=== PATIENT | female | born 1975 | race Caucasian/White ===

== ENCOUNTER 2017-10-14 15:25 | Inpatient (IN) ==
--- NOTE | 2017-10-14 15:39 | Emergency Department Note ---
Disposition Clinical Impression: Neurosensory deficit, Left-sided weakness, Left sided numbness, Facial droop Headache Qualifiers: Headache type: unspecified Headache chronicity pattern: acute headache Intractability: not intractable Qualified Code(s): R51 - Headache Disposition: Admitted As Inpatient Condition: Good Referrals: Zuhair South MD [Primary Care Provider] - Forms: ED Satisfaction Letter Time of Disposition: 18:14 Neuro HPI - General Chief Complaint: ED Neuro Symptoms/Deficit Stated Complaint: CHAUDHARY Time Seen by Provider: 10/14/17 15:34 Source: patient Mode of arrival: ambulatory Limitations: no limitations Nursing Notes Reviewed: Yes Vital Signs Reviewed: Yes - History of Present Illness HPI Narrative: Patient is a 41-year-old female with no past medical history. Presents today due to left sided facial droop, left-sided facial numbness, left upper and lower extremity numbness and weakness. She originally stated that the symptoms began around 10 AM, when she noted left lower lip numbness. This eventually progressed to the left face. During the same time, she had a headache on the left side of her head and left neck. Throughout the day, she progressed to have a left upper extremity and lower extremity weakness and decreased sensation. Denies any vision change. Denies any other testing, shortness of breath, nausea, vomiting, fevers, diarrhea. - Related Data Home Medications: Home Medications Medication Instructions Recorded Confirmed Cyclobenzaprine [Flexeril] 10 mg PO BID PRN 10/14/17 10/14/17 Lisinopril/Hydrochlorothiazide 1 tab PO DAILY 10/14/17 10/14/17 [Zestoretic 20-12.5 mg Tablet] Nortriptyline HCl 50 mg PO HS 10/14/17 10/14/17 OxyCODONE/APAP 5/325 [Percocet 1 tab PO Q8HR PRN 10/14/17 10/14/17 5/325 MG] Allergies/Adverse Reactions: Allergies Allergy/AdvReac Type Severity Reaction Status Date / Time codeine AdvReac See Verified 10/14/17 17:23 Comments sumatriptan [From Imitrex] AdvReac Vomiting Verified 10/14/17 17:23 All systems ED: reviewed and negative except as stated. Constitutional: Denies: fever Cardiovascular: Denies: chest pain Respiratory: Denies: cough, dyspnea, wheezes Gastrointestinal: Denies: abdominal pain, nausea, vomiting, diarrhea Integumentary: Denies: rash Neurological: Reports: headache, weakness, numbness Past Medical History - Past Medical History Attestation: Yes The following information was validated with the patient. Source: patient Medical history: Reports: hypertension Psychiatric history: Reports: no psych history - Social History Smoking Status: Never smoker Smokeless Tobacco Status: No Alcohol use: Reports: none Drug use: Reports: none Physical Exam - General Limitations: no limitations General appearance: alert - Head Head exam: atraumatic, normocephalic, normal inspection - Eye Eye exam: Present: normal appearance, PERRL, EOMI - ENT ENT exam: normal exam, normal oropharynx, mucous membranes moist - Neck Neck exam: Present: normal inspection, full ROM, trachea midline - Chest Chest inspection: Present: normal inspection, symmetric chest wall rise - Respiratory Respiratory exam: Present: normal lung sounds bilaterally - Cardiovascular Cardiovascular exam: Present: regular rate, normal rhythm, normal heart sounds - Abdominal Exam Abdominal exam: Present: soft, Non-Tender. Absent: tenderness, distention, guarding, rebound, rigidity - Extremities Exam Extremities exam: Present: normal inspection. Absent: tenderness, pedal edema - Neurological Exam Neurological exam: Present: alert, oriented X3, motor sensory deficit - Expanded Neurological Exam Patient oriented to: Present: person, place, time Speech: Present: fluid speech Cranial nerves: facial sensation (V): Abnormal Left, facial palsy (VII): Abnormal Left, spinal accessory function (XI): Normal, tongue deviation (XII): Normal Cerebellar function: finger to nose: Abnormal Left Upper motor neuron exam: mor neglect: Absent bilaterally Sensory exam upper extremity: light touch: Abnormal Left Sensory exam lower extremity: light touch: Abnormal Left Coma Scale Eye Opening: Spontaneous Coma Scale Motor Response: Obeys Commands Coma Scale Verbal Response: Oriented Coma Scale Total: 15 - Psychiatric Psychiatric exam: Present: normal affect, normal mood - Skin Skin exam: Present: warm, dry, intact, normal color Course Course Narrative: Due to age and presenting within 8 hours, stroke alert was called. Patient is around 5 hours out from initial time of onset so she is outside window for TPA. We will obtain CT of the head and basic blood work. 15:58 Spoke with [facility] radi[facility] Dr. Alan - "Subtle low density on occipital region; uncertain if new or not; acute or subacute edema from ischemic stroke cannot be ruled out." 16:00 patient was reassessed and now she believes that she may have broken up this morning around 10 AM with some of these symptoms present left-sided facial numbness and tingling. She now has changed her last known well to last night around 11 PM prior to bedtime. I talked with neurologist at [facility] and he has reviewed the head CT as well and does believe that these lesions on the head CT due to possibly represent stroke. He requested a head CT and neck CTA be obtained to assess for any clot, as the patient may be a candidate for thrombectomy. CTA shows no significant stenosis of any arteries. [facility] neurologists had assessed the patient and recommends admission here for further workup and care due to patient not having clot possible for thrombectomy. Patient was given aspirin. She was also given Toradol for headache. Lubricant eyedrops have been provided for left eye due to inability to fully close the left eye. Chest X-Ray 10/14/17 15:37 IMPRESSION: No radiographic evidence for acute cardiopulmonary disease process. D/ / Poli Benoit / Poli Benoit Interpreting Provider: Poli Benoit Head CT 10/14/17 15:37 IMPRESSION: Subtle occipital low-density noted bilaterally - right slightly more prominent than left. Clinical significance is uncertain but this could represent edema from acute or subacute nonhemorrhagic infarct. Critical results were called by Dr. Eliud Gregory MD to Travis Holguin on 10/14/2017 at 16:00. RECOMMENDATIONS: If clinical picture is unclear or there is high clinical suspicion for acute ischemic change, MRI the brain would be recommended for further evaluation. D/ / Eliud Gregory MD / Eliud Gregory MD Interpreting Provider: Eliud Gregory MD Head CTA 10/14/17 15:38 IMPRESSION: There is no focal significant arterial narrowing in the head or the neck. D/ / Allen Galan / Allen Galan Interpreting Provider: Allen Galan Neck CTA 10/14/17 15:38 IMPRESSION: There is no focal significant arterial narrowing in the head or the neck. D/ / Allen Galan / Allen Galan Interpreting Provider: Allen Galan Vital Signs Temperature 98.5 F 10/14/17 15:26 Pulse Rate 75 10/14/17 15:26 Respiratory Rate 20 10/14/17 15:26 Blood Pressure 186/123 10/14/17 15:26 O2 Sat by Pulse Oximetry 98 10/14/17 15:26 Temperature 98.5 F 10/14/17 15:26 Pulse Rate 65 10/14/17 17:59 Respiratory Rate 15 10/14/17 17:59 Blood Pressure 157/100 10/14/17 17:59 O2 Sat by Pulse Oximetry 96 10/14/17 17:59 Oxygen Delivery Oxygen Delivery Room Air Neuro Symptoms/Deficit - MDM Narrative Medical decision making narrative: Due to age and presenting within 8 hours, stroke alert was called. Patient is around 5 hours out from initial time of onset so she is outside window for TPA. We will obtain CT of the head and basic blood work. 15:58 Spoke with [facility] radi[facility] Dr. Alan - "Subtle low density on occipital region; uncertain if new or not; acute or subacute edema from ischemic stroke cannot be ruled out." 16:00 patient was reassessed and now she believes that she may have broken up this morning around 10 AM with some of these symptoms present left-sided facial numbness and tingling. She now has changed her last known well to last night around 11 PM prior to bedtime. I talked with neurologist at [facility] and he has reviewed the head CT as well and does believe that these lesions on the head CT due to possibly represent stroke. He requested a head CT and neck CTA be obtained to assess for any clot, as the patient may be a candidate for thrombectomy. CTA shows no significant stenosis of any arteries. [facility] neurologists had assessed the patient and recommends admission here for further workup and care due to patient not having clot possible for thrombectomy. Patient was given aspirin. She was also given Toradol for headache. Lubricant eyedrops have been provided for left eye due to inability to fully close the left eye. - Medical Records Medical records reviewed: Yes I reviewed the patient's medical records. - Lab Data Lab results reviewed: Yes I reviewed the patient's lab results. Result diagrams: 10/14/17 15:37 10/14/17 15:37 Lab Results 10/14/17 10/14/17 10/14/17 Range/Units 15:33 15:37 15:37 WBC 8.8 (4.3-11.1) K/mcL RBC 4.28 (3.82-4.97) M/mcL Hgb 13.2 (11.5-15.4) g/dL Hct 38.0 (35.3-44.9) % MCV 88.8 (83.0-100.0) fL MCH 30.8 (28.0-33.3) pg MCHC 34.7 (31.6-35.5) g/dL RDW 12.5 (11.5-14.5) % Plt Count 314 (140-400) K/mcL MPV 10.5 (9.4-12.4) fL Immature Gran % 0.3 (0-4) % Seg Neutrophils % 49.9 % Lymphocytes % 37.4 % Monocytes % 6.8 % Eosinophils % 5.1 % Basophils % 0.5 % Neutrophils # 4.4 (1.6-8.9) K/mcL Lymphocytes # 3.3 (0.6-4.6) K/mcL Monocytes # 0.6 (0.0-1.3) K/mcL Eosinophils # 0.5 (0.0-0.6) K/mcL Basophils # 0.0 (0.0-0.2) K/mcL PT WATER SAFETY TEACHER INR WATER SAFETY TEACHER APTT WATER SAFETY TEACHER Sodium (136-145) mEq/L Potassium (3.5-5.1) mEq/L Chloride (98-107) mEq/L Carbon Dioxide (23-29) mEq/L BUN (6-20) mg/dL Creatinine (0.60-1.20) mg/dL Est GFR ( Amer) (> 60) Est GFR (Non-Af Amer) (> 60) BUN/Creatinine Ratio (6-26) Glucose (70-105) mg/dL POC Glucose 97 (70-99) mg/dL Calculated Osmolality (280-300) Calcium (8.6-10.3) mg/dL Troponin I (< 0.04) ng/mL 10/14/17 10/14/17 Range/Units 15:37 15:37 WBC (4.3-11.1) K/mcL RBC (3.82-4.97) M/mcL Hgb (11.5-15.4) g/dL Hct (35.3-44.9) % MCV (83.0-100.0) fL MCH (28.0-33.3) pg MCHC (31.6-35.5) g/dL RDW (11.5-14.5) % Plt Count (140-400) K/mcL MPV (9.4-12.4) fL Immature Gran % (0-4) % Seg Neutrophils % % Lymphocytes % % Monocytes % % Eosinophils % % Basophils % % Neutrophils # (1.6-8.9) K/mcL Lymphocytes # (0.6-4.6) K/mcL Monocytes # (0.0-1.3) K/mcL Eosinophils # (0.0-0.6) K/mcL Basophils # (0.0-0.2) K/mcL PT 10.7 INR 1.0 APTT 33.1 Sodium 140 (136-145) mEq/L Potassium 3.9 (3.5-5.1) mEq/L Chloride 109 H (98-107) mEq/L Carbon Dioxide 25 (23-29) mEq/L BUN 10 (6-20) mg/dL Creatinine 0.76 (0.60-1.20) mg/dL Est GFR ( Amer) > 60 (> 60) Est GFR (Non-Af Amer) > 60 (> 60) BUN/Creatinine Ratio 13 (6-26) Glucose 87 (70-105) mg/dL POC Glucose (70-99) mg/dL Calculated Osmolality 288 (280-300) Calcium 9.4 (8.6-10.3) mg/dL Troponin I < 0.03 (< 0.04) ng/mL - Radiology Data Radiology results reviewed: Yes I reviewed the patient's radiology results. Chest X-Ray 10/14/17 15:37 IMPRESSION: No radiographic evidence for acute cardiopulmonary disease process. D/ / Poli Benoit / Poli Benoit Interpreting Provider: Poli Benoit Head CT 10/14/17 15:37 IMPRESSION: Subtle occipital low-density noted bilaterally - right slightly more prominent than left. Clinical significance is uncertain but this could represent edema from acute or subacute nonhemorrhagic infarct. Critical results were called by Dr. Eliud Gregory MD to Travis Holguin on 10/14/2017 at 16:00. RECOMMENDATIONS: If clinical picture is unclear or there is high clinical suspicion for acute ischemic change, MRI the brain would be recommended for further evaluation. D/ / Eliud rGegory MD / Eliud Gregory MD Interpreting Provider: Eliud Gregory MD Head CTA 10/14/17 15:38 IMPRESSION: There is no focal significant arterial narrowing in the head or the neck. D/ / Allen Galan / Allen Galan Interpreting Provider: Allen Galan Neck CTA 10/14/17 15:38 IMPRESSION: There is no focal significant arterial narrowing in the head or the neck. D/ / Allen Galan / Allen Galan Interpreting Provider: Allen Galan - EKG Data EKG attestation: Yes I reviewed and interpreted this EKG. EKG results narrative: 10/14/2017 at 15:50. Normal sinus rhythm. Rate 83. MD 157. QRS 96. QTC 395. Left axis deviation. No acute ST elevation or depression. NIH Stroke Scale - Level of Consciousness LOC: Alert - LOC Questions LOC Questions: Answers both correctly - LOC Commands LOC Commands: Performs both correctly - Best Gaze Best Gaze: Normal - Visual Visual: No visual loss - Facial Palsy Facial Palsy: Partial, total, or near-total paralysis of lower face - Motor Arms Motor Arm-Left: Drift, does NOT hit bed Motor Arm-Right: No drift for 10 seconds - Motor Legs Motor Leg-Left: Drift, does NOT hit bed Motor Leg-Right: No drift for 5 seconds - Limb Ataxia Limb Ataxia: Present in ONE limb - Sensory Sensory: Mild to moderate loss, "not as sharp" - Best Language Best Language: No aphasia - Dysarthria Dysarthria: Normal - Extinction and Inattention Extinction and Inattention: Normal - NIHSS Total Score NIHSS Total Score: 6 TPA Checklist - LKW: 3-4.5 hrs Add. Warnings/Precautions Patient/family understanding: The patient/family members have been counseled and understood the risk, benefit , and alternatives of treatment. S.B.ABev - Octaviano.Fabio Situation: Demographics, MOA Background: Presenting Complaint, Relevant PMH, Meds, & Allergies Assessment: Vital Signs, Course and respsone to treatment, Exam Concerns, Patient/Family Expectation, Pertinant Lab Results Recommendation: Barrier(s) to disposition, Recommendation based on pending studies, treatments, or consults S.B.ABev Report Given to: Eliud Waldron Repor Time: 18:14
[2017-10-14] MEDS ORDERED: niCARdipine 40 MG/200 ML MLS IVC SCH (15:45)
[2017-10-14 16:02] LABS: Basophils % 0.5 %; Eosinophils # 0.5 K/mcL (0.0-0.6); Eosinophils % 5.1 %; Hemoglobin 13.2 g/dL (11.5-15.4); Immature Granulocytes % 0.3 % (0-4); Lymphocytes # 3.3 K/mcL (0.6-4.6); Lymphocytes % 37.4 %; Mean Corpuscular HGB Conc 34.7 g/dL (31.6-35.5); Mean Corpuscular Hemoglobin 30.8 pg (28.0-33.3); Mean Corpuscular Volume 88.8 fL (83.0-100.0); Mean Platelet Volume 10.5 fL (9.4-12.4); Monocytes # 0.6 K/mcL (0.0-1.3); Monocytes % 6.8 %; Neutrophils # 4.4 K/mcL (1.6-8.9); Platelet Count 314 K/mcL (140-400); Red Blood Count 4.28 M/mcL (3.82-4.97); Red Cell Distribution Width 12.5 % (11.5-14.5); Segmented Neutrophils % 49.9 %
--- NOTE | 2017-10-14 16:19 | Emergency Department Note ---
Disposition Clinical Impression: Neurosensory deficit Disposition: Still a Patient Forms: ED Satisfaction Letter General Adult HPI - General Chief complaint: ED Neuro Symptoms/Deficit Stated complaint: CHAUDHARY Time Seen by Provider: 10/14/17 15:34 Source: patient Mode of arrival: ambulatory Limitations: no limitations - History of Present Illness Pain Scale: 9 - Related Data Previous Rx's Medication Instructions Recorded OxyCODONE Immed Rel [Roxicodone 5 5 mg PO Q6HR PRN 7 Days #30 tablet 08/10/17 MG] Allergies Allergy/AdvReac Type Severity Reaction Status Date / Time codeine AdvReac See Verified 08/09/17 07:10 Comments sumatriptan [From Imitrex] AdvReac Vomiting Verified 08/09/17 07:10 Past Medical History - Past Medical History Medical history: Reports: hypertension Psychiatric history: Reports: no psych history - Social History Smoking Status: Never smoker Smokeless Tobacco Status: No Alcohol use: Reports: none Drug use: Reports: none Physical Exam - General Limitations: no limitations General appearance: alert Course Vital Signs Temperature 98.5 F 10/14/17 15:26 Pulse Rate 75 10/14/17 15:26 Respiratory Rate 20 10/14/17 15:26 Blood Pressure 186/123 10/14/17 15:26 O2 Sat by Pulse Oximetry 98 10/14/17 15:26 Temperature 98.5 F 10/14/17 15:26 Pulse Rate 76 10/14/17 16:00 Respiratory Rate 18 10/14/17 16:00 Blood Pressure 153/98 10/14/17 16:00 O2 Sat by Pulse Oximetry 99 10/14/17 15:58 Oxygen Delivery Oxygen Delivery Room Air Medical Decision Making - Lab Data Result diagrams: 10/14/17 15:37 Lab Results 10/14/17 Range/Units 15:37 WBC 8.8 (4.3-11.1) K/mcL RBC 4.28 (3.82-4.97) M/mcL Hgb 13.2 (11.5-15.4) g/dL Hct 38.0 (35.3-44.9) % MCV 88.8 (83.0-100.0) fL MCH 30.8 (28.0-33.3) pg MCHC 34.7 (31.6-35.5) g/dL RDW 12.5 (11.5-14.5) % Plt Count 314 (140-400) K/mcL MPV 10.5 (9.4-12.4) fL Immature Gran % 0.3 (0-4) % Seg Neutrophils % 49.9 % Lymphocytes % 37.4 % Monocytes % 6.8 % Eosinophils % 5.1 % Basophils % 0.5 % Neutrophils # 4.4 (1.6-8.9) K/mcL Lymphocytes # 3.3 (0.6-4.6) K/mcL Monocytes # 0.6 (0.0-1.3) K/mcL Eosinophils # 0.5 (0.0-0.6) K/mcL Basophils # 0.0 (0.0-0.2) K/mcL Attestation Statement - Attestation Attestation: I examined this patient and my medical decision-making was reviewed with the Resident Physician. I agree with the documented findings, disposition and treatment plan as described except to the extent set forth below. 41 year old female presents to the eD with complaints of left side facial paralysis and left sided upper and lower exremitily weekness that may have started at 1000 this morning or 2200 yesterday when she went to bed last night. It appears that it may e lau palsy due to upper face involvement, however, she is experincining increaed left upper and lower extremitiy sensation defecits and pronator drifts. Elías ORELLANA is questionalbel for acute stroke and [facility] neurologist would like a CTA head for futher evlauation for thromectomy. Either way she will either be trasfnerrred to [facility] or admitted here.
[2017-10-14 16:21] LABS: BUN/Creatinine Ratio 13 (6-26); Blood Urea Nitrogen 10 mg/dL (6-20); Calcium 9.4 mg/dL (8.6-10.3); Carbon Dioxide 25 mEq/L (23-29); Chloride 109 mEq/L (98-107); Glucose 87 mg/dL (70-105); Osmolality,Calculated 288 (280-300); Potassium 3.9 mEq/L (3.5-5.1); Sodium 140 mEq/L (136-145); Troponin I < 0.03 ng/mL (< 0.04); eGFR For African Americans > 60 (> 60); eGFR For Non-African Americans > 60 (> 60)
[2017-10-14 16:50] LABS: Activated Partial Thrombo Time 33.1 Seconds (26.0-36.0); Prothrombin Time 10.7 Seconds (9.4-12.1)
[2017-10-14] MEDS ORDERED: Aspirin 325 MG TABLET PO ONE (17:04)
[2017-10-14] MEDS ORDERED: Ketorolac 15 MG/ML VIAL IVP ONE (17:37)
[2017-10-14] MEDS: Artificial Tears SOLN 15 ML BOTTLE LEFT EYE SCH ×2 (18:30→21:37)
--- NOTE | 2017-10-14 20:22 | Internal Med History&Physical ---
Date of Encounter: 10/14/17 Time of Encounter: 20:15 Internal Medicine - H&P: HPI Chief complaint: left sided weakness Admitted From: Emergency Dept Plans for Post Hospital Care: Home History of present illness: Ms. Parra is a 41 year old female who is a background history of hypertension , hyperlipidemia, migraine. Patient woke up around 8 AM to 8:30 AM this morning. Noted that her tongue was slightly severe as compared to the routine days. Around 10:00 she noted that there was a weakness in her left upper extremity/lower extremity along with numbness. Patient was concern about this development but she tolerated will go away. Around 2 PM patient decided to come to Hospital for further evaluation. Patient denies chest pain, nausea, vomiting, shortness of breath, abdominal pain , dizziness and diarrhea. Please see the ED note for [facility] daily neurology consultation. Workup in the emergency room: Patient was evaluated in the emergency room. Stroke alert was called. [facility] neurology Department was consulted. Patient underwent CT scan of the head/CTA head /CTA neck. Reason for admission: TIA to rule out CVA. Family history: Noncontributory Past Med Surg Social Fam HX - Past Medical History Medical history: hypertension Psychiatric history: no psych history - Social History Smoking Status: Never smoker Smokeless Tobacco Status: No Alcohol use: none Drug use: none Internal Medicine - H&P: Meds Cyclobenzaprine [Flexeril] 10 mg PO BID PRN 10/14/17 [History] Lisinopril/Hydrochlorothiazide [Zestoretic 20-12.5 mg Tablet] 1 tab PO DAILY 05/22 [History] Nortriptyline HCl 50 mg PO HS 10/14/17 [History] OxyCODONE/APAP 5/325 [Percocet 5/325 MG] 1 tab PO Q8HR PRN 10/14/17 [History] 3 Allergy/AdvReac Type Severity Reaction Status Date / Time codeine AdvReac See Verified 10/14/17 17:23 Comments sumatriptan [From Imitrex] AdvReac Vomiting Verified 10/14/17 17:23 All Systems PM: A 10-system review of systems was performed and is negative for pertinent findings except as documented above in the HPI. - Constitutional Constitutional: no chills, no fever(s), no night sweats - EENT Eyes: no change in vision, no discharge, no pain, no photophobia Ears: no ear discharge, no ear pain, no tinnitus Nose, mouth and throat: no dysphagia, no nasal discharge, no neck pain, no sore throat - Cardiovascular Cardiovascular ROS IM: no chest pain, no diaphoresis, no dyspnea, no lightheadedness, no palpitations, no syncope - Respiratory Respiratory: no cough, no dyspnea, no wheezing, no excessive phlegm production - Gastrointestinal Gastrointestinal: no abdominal pain, no diarrhea, no hematemesis, no hematochezia, no melena, no nausea, no vomiting - Genitourinary Genitourinary: no change in urinary stream, no dysuria, no flank pain, no hematuria - Musculoskeletal Musculoskeletal ROS IM: no numbness, no tingling - Integumentary Integumentary IM: no rash, no unusual bruising - Neurological Neurological ROS: no confusion, no convulsions, no focal weakness, no numbness, no tingling, no tremor(s) - Hematologic/Lymphatic Hematologic/Lymphatic: no easy bruising - Constitutional Vitals: Temp Pulse Resp BP Pulse Ox 98.1 F 67 16 151/96 97 10/14/17 20:06 10/14/17 20:06 10/14/17 20:06 10/14/17 20:06 10/14/17 20:06 General appearance: Present: A&O X 3, pleasant, no acute distress, answers questions appropriately - Head Head exam: Present: atraumatic, normocephalic - Eye Eye exam: Present: PERRL, conjuntiva pink, sclera anicteric Pupils: Present: PERRL - Neck Neck exam general surgery: Present: supple, trachea midline. Absent: lymphadenopathy - Respiratory Respiratory exam: Present: CTAB. Absent: accessory muscle use, rales, rhonchi, wheezes - Cardiovascular Cardiovascular exam: Present: RRR, +S1, +S2. Absent: diastolic murmur, gallop, rubs, systolic murmur - GI/Abdominal GI/Abdominal exam: Present: normal bowel sounds, soft, no peritoneal signs. Absent: distended, tenderness - Extremities Exam Extremities exam: Present: warm, radial pulses palpable and symmetrical. Absent : calf tenderness, cyanotic, pedal edema - Neurological Exam Neurological exam: Present: CN II-XII intact, oriented X3. Absent: pronater drift, facial droop, speech deficit Additional comments: Patient does have a left upper extremity power 4/5/lower extremity power 4/5. She has a numbness. - Skin Skin exam: Present: dry, intact Internal Med - H&P Results - Labs CBC & Chem 7: 10/14/17 15:37 10/14/17 15:37 - Assessment and plan (1) Neurosensory deficit Current Visit: Yes Status: Acute Assessment and plan: 41/female Admitted with right-sided CVA/left-sided weakness. CT head: Negative CTA head/CTA neck: Negative for any severe occlusive disease. Aspirin/Lipitor. Physical therapy/occupational therapy. Patient can swallow water without any reflux/regurgitation. Neurologic consult placed. I personally spoke with Dr. Edge. MRI of the head. Young stroke workup. I examined this patient in 3B 54 along with the charge nurse. Plan of care explained to the patient. She verbalized understanding. (2) Hypertension Current Visit: Yes Status: Acute Assessment and plan: Patient is known to have essential hypertension. In view of acute stroke permissive hypertension is permitted. We will monitor her blood pressure very closely. we will resume her home dose of medication. Qualifiers: Hypertension type: essential hypertension Qualified Code(s): I10 - Essential (primary) hypertension (3) Dyslipidemia Current Visit: Yes Status: Acute Assessment and plan: We will get lipid panel tomorrow morning. Started patient on the Lipitor 80 mg. (4) DVT prophylaxis Current Visit: Yes Status: Acute Assessment and plan: SCD Medical decision making: This patient has a moderate to severe risk of worsening in spite of being on appropriate medication due to the underlying comorbid conditions. - Time Spent With Patient Total time spent is greater than 50% in coordination of care (as documented) at patient's floor/unit and/or counseling patient:
[2017-10-14] MEDS: *HR* OxyCODONE/APAP 5/325 TABLET PO PRN (21:39)
[2017-10-15 04:00] LABS: Amphetamine Screen,Urine Negative ng/mL (Cutoff=1000); Barbiturate Screen,Urine Negative ng/mL (Cutoff=200); Benzodiazepines Screen,Urine Negative ng/mL (Cutoff=200); Cannabinoid Screen,Urine Negative ng/mL (Cutoff = 50); Cocaine Screen,Urine Negative ng/mL (Cutoff= 300); Opiate Screen,Urine Negative ng/mL (Cutoff=300); Phencyclidine Screen,Urine Negative ng/mL (Cutoff=25)
[2017-10-15 05:34] LABS: Basophils % 0.4 %; Eosinophils # 0.4 K/mcL (0.0-0.6); Eosinophils % 6.1 %; Hematocrit 35.3 % (35.3-44.9); Hemoglobin 12.1 g/dL (11.5-15.4); Immature Granulocytes % 0.1 % (0-4); Lymphocytes % 43.3 %; Mean Corpuscular HGB Conc 34.3 g/dL (31.6-35.5); Mean Corpuscular Hemoglobin 30.3 pg (28.0-33.3); Mean Corpuscular Volume 88.5 fL (83.0-100.0); Mean Platelet Volume 10.2 fL (9.4-12.4); Monocytes # 0.4 K/mcL (0.0-1.3); Monocytes % 6.3 %; Platelet Count 294 K/mcL (140-400); Red Blood Count 3.99 M/mcL (3.82-4.97); Red Cell Distribution Width 12.3 % (11.5-14.5); Segmented Neutrophils % 43.8 %
[2017-10-15 05:51] LABS: Alanine Aminotransferase 13 Units/L (7-52); Albumin 3.7 g/dL (3.5-5.7); Albumin/Globulin Ratio 1.8 (1.1-2.2); Alkaline Phosphatase 55 Units/L (34-104); Aspartate Amino Transferase 12 Units/L (13-39); BUN/Creatinine Ratio 13 (6-26); Bilirubin,Indirect 0.2 mg/dL (0.0-1.2); Bilirubin,Total 0.2 mg/dL (0.3-1.0); Blood Urea Nitrogen 9 mg/dL (6-20); Calcium 8.9 mg/dL (8.6-10.3); Carbon Dioxide 24 mEq/L (23-29); Chloride 109 mEq/L (98-107); Globulin 2.1 g/dL (2.4-3.5); Glucose 92 mg/dL (70-105); Osmolality,Calculated 284 (280-300); Sodium 138 mEq/L (136-145); Total Protein 5.8 g/dL (6.4-8.9); eGFR For African Americans > 60 (> 60); eGFR For Non-African Americans > 60 (> 60)
[2017-10-15] MEDS: *HR* OxyCODONE/APAP 5/325 TABLET PO PRN ×2 (06:04→15:40)
[2017-10-15] MEDS: Lisinopril-HCTZ 20-12.5mg TABLET PO SCH (09:47)
[2017-10-15] MEDS: Artificial Tears SOLN 15 ML BOTTLE LEFT EYE SCH ×4 (09:47→19:44)
[2017-10-15] MEDS: Aspirin 81 MG TAB.CHEW PO SCH (09:47)
--- NOTE | 2017-10-15 10:12 | Internal Med Progress Note ---
Date of Encounter: 10/15/17 Time of Encounter: 10:00 - Assessment and plan (1) Neurosensory deficit Current Visit: Yes Status: Acute Assessment and plan: 41/female Admitted with right-sided CVA/left-sided weakness r/o TIA. CT head: Negative CTA head/CTA neck: Negative for any severe occlusive disease. Continue Aspirin/Lipitor. F/U MRI head. Appreciate neuro recs (2) Hypertension Current Visit: Yes Status: Acute Assessment and plan: Monitor BP. Resume home meds Qualifiers: Hypertension type: essential hypertension Qualified Code(s): I10 - Essential (primary) hypertension (3) Dyslipidemia Current Visit: Yes Status: Acute Assessment and plan: F/U lipid panel. Continue lipitor. (4) DVT prophylaxis Current Visit: Yes Status: Acute Assessment and plan: SCD Medical decision making: This patient has a moderate to severe risk of worsening in spite of being on appropriate medication due to the underlying comorbid conditions. - Time Spent With Patient Total time spent is greater than 50% in coordination of care (as documented) at patient's floor/unit and/or counseling patient: - Subjective Interval history: No acute events overnight - Constitutional Vitals: Temp Pulse Resp BP Pulse Ox 98.3 F 63 18 151/91 93 10/15/17 07:19 10/15/17 07:19 10/15/17 07:19 10/15/17 07:19 10/15/17 09:55 General appearance: Present: A&O X 3, pleasant, no acute distress, answers questions appropriately - Head Head exam: Present: atraumatic, normocephalic - Eye Eye exam: Present: PERRL, conjuntiva pink, sclera anicteric Pupils: Present: PERRL - Neck Neck exam general surgery: Present: supple, trachea midline. Absent: lymphadenopathy - Respiratory Respiratory exam: Present: CTAB. Absent: accessory muscle use, rales, rhonchi, wheezes - Cardiovascular Cardiovascular exam: Present: RRR, +S1, +S2. Absent: diastolic murmur, gallop, rubs, systolic murmur - GI/Abdominal GI/Abdominal exam: Present: normal bowel sounds, soft, no peritoneal signs. Absent: distended, tenderness - Extremities Exam Extremities exam: Present: warm, radial pulses palpable and symmetrical. Absent : calf tenderness, cyanotic, pedal edema - Neurological Exam Neurological exam: Present: CN II-XII intact, oriented X3, no focal deficits. Absent: pronater drift, facial droop, speech deficit - Skin Skin exam: Present: dry, intact Internal Medicine: Result - Labs CBC & Chem 7: 10/15/17 05:17 10/15/17 05:17 Labs: Short CBC 10/15/17 Range/Units 05:17 WBC 6.9 (4.3-11.1) K/mcL Hgb 12.1 (11.5-15.4) g/dL Hct 35.3 (35.3-44.9) % Plt Count 294 (140-400) K/mcL Neutrophils # 3.0 (1.6-8.9) K/mcL BMP 10/15/17 05:17 Sodium 138 Potassium 4.0 Chloride 109 H Carbon Dioxide 24 BUN 9 Creatinine 0.69 Glucose 92 Calcium 8.9 Liver Function 10/15/17 Range/Units 05:17 Total Bilirubin 0.2 L (0.3-1.0) mg/dL Direct Bilirubin 0.0 (0.0-0.2) mg/dL AST 12 L (13-39) Units/L ALT 13 (7-52) Units/L Alkaline Phosphatase 55 (34-104) Units/L Albumin 3.7 (3.5-5.7) g/dL - ABG Interpretation ABG results: PT/INR, D-dimer PT 10.7 Seconds (9.4-12.1) 10/14/17 15:37 Consult Discharge Plan - Plan Referrals: Zuhair South MD [Primary Care Provider] -
--- NOTE | 2017-10-15 11:48 | Neurology - Consult Note ---
Date of Encounter: 10/15/17 Time of Encounter: 11:44 Assessment and Plan (1) Facial droop Current Visit: Yes Status: Acute This case is somewhat atypical. Clinically speaking, it appears to be a simple lower motor neuron left facial palsy. However of course the left facial numbness and the left tongue numbness with the left-sided weakness would not be expected with this. However it is not uncommon for left facial palsy to start with a very intense occipital nuchal type headache. This is generally due to inflammation of the facial nerve within the facial canal. Certainly brainstem infarct is possible, however generally when it occurs to brainstem lesions usually CN V, and VII would be expected to be involved simultaneously. She has no diplopia. Also the stepwise evolution of the symptoms is atypical for stroke. Stroke symptoms are generally sudden and maximal at onset. It seems as though her deficits first involved the left tongue, then later the left face and the left facial weakness has progressed overnight. Another oddity is that the CT scan of the brain revealed bilateral occipital lobe infarcts however she has no acute visual changes to correlate with this finding from a clinical perspective. Her blood pressure was extremely elevated upon admission at 186/123. In any regard, an MRI scan of the brain with diffusion images would certainly settled a matter. In the meantime I would recommend maintaining her on stroke protocol nursing orders. Further recommendations will be made upon completion of the MRI scan of the brain. At this point I will go ahead and normalize her blood pressure. Certainly statins, aspirin 81 mg and long-term management of hypertension are in order. History of Present Illness HPI: The chart was reviewed, the patient was seen and examined. Case was discussed last night with the admitting hospitalist. Odette Parra is a very pleasant 41- year-old woman who is being seen for neurologic evaluation secondary to strokelike symptoms. She informs me that prior to coming to the hospital she experienced left-sided neck pain and pain in the left mastoid region. She went to bed and awakened with numbness of the left side of the tongue. As the progress she noticed weakness of the left side of the face which she has continued to progressively worsen overnight up until now. She denied any acute visual changes. She did not notice weakness of the left arm and leg internal arriving at the hospital yesterday evening. CTA of the brain and neck was completed which revealed no evidence of thrombus or vascular occlusion. CAT scan of the brain revealed possible bilateral occipital lobe infarct. However clinically the patient does not have any visual complaints. She still has left occipital nuchal pain and headache. And she has what looks like a lower motor neuron left facial palsy. She is alert and oriented no signs of lethargy or confusion. Denies left ear pain or hearing loss. Past Med Surg Social Fam HX - Past Medical History Medical history: hypertension Psychiatric history: no psych history - Past Surgical History Surgical History: cholecystectomy - Social History Smoking Status: Never smoker Smokeless Tobacco Status: No Alcohol use: none Drug use: none - Family History Mother Hx Family Cardiac Disorders: Yes (HTN, CVA) Medications and Allergies Cyclobenzaprine [Flexeril] 10 mg PO BID PRN 10/14/17 [History] Lisinopril/Hydrochlorothiazide [Zestoretic 20-12.5 mg Tablet] 1 tab PO DAILY 05/22 [History] Nortriptyline HCl 50 mg PO HS 10/14/17 [History] OxyCODONE/APAP 5/325 [Percocet 5/325 MG] 1 tab PO Q8HR PRN 10/14/17 [History] 3 Allergy/AdvReac Type Severity Reaction Status Date / Time codeine AdvReac See Verified 10/14/17 17:23 Comments sumatriptan [From Imitrex] AdvReac Vomiting Verified 10/14/17 17:23 All Systems: The remainder of the systems were reviewed and are negative Review of Systems: The balance of the systems review is negative. Physical Examination - Vital Signs Vital Signs: Initial Vital Signs Temp Pulse Resp BP Pulse Ox 98.5 F 75 20 186/123 98 10/14/17 15:26 10/14/17 15:26 10/14/17 15:26 10/14/17 15:26 10/14/17 15:26 - Neurologic Motor examination - right side: 5/5: deltoids, biceps, triceps, apple press operator, hip flexors, tibialis Anterior, quadriceps, toe extension (EHL), plantarflexion Motor examination - left side: 4/5: deltoids, biceps, triceps, hip flexors, apple press operator , quadriceps, tibialis Anterior, toe extension (EHL), plantarflexion Detailed sensory examination: other (Left hemihypoesthesia, including the left face.) Reflexes: Biceps: 2+ (Symmetrically), Triceps: 2+ (Symmetrically), Brachioradialis: 2+ (Symmetrically), Patella: 2+ (Symmetrically), Achilles: 2+ ( Symmetrically) Mental Status Examination: awake, alert, oriented to person, oriented to place, oriented to time, follows commands appropriately, answers questions appropriately, no agnosia, no aphasia, no aproxia Cranial nerve examination: PERRL, EOMI, visual cho intact, corneal reflexes brisk symmetrically, mastication intact, no dysarthria, hearing is intact symmetrically, soft palate elevates bilaterally upon phonation, flexes SCM and trapezius muscles symmetrically with full power, tongue protrudes midline Cranial Nerve Exam: facial hypesthesia: Left, facial droop: Left, flattening of masolabic/folds: Left Cerebellar examination: no dysmetria, performs finger to nose and heel to bentley symmetrically without ataxia, no gait ataxia, no truncal ataxia, no difficulty with rapid alternating movements Results - Laboratory Findings CBC and BMP: 10/15/17 05:17 10/15/17 05:17 Abnormal lab findings: Abnormal lab results Chloride 109 mEq/L (98-107) H 10/15/17 05:17 Total Bilirubin 0.2 mg/dL (0.3-1.0) L 10/15/17 05:17 AST 12 Units/L (13-39) L 10/15/17 05:17 Serum Total Protein 5.8 g/dL (6.4-8.9) L 10/15/17 05:17 Globulin 2.1 g/dL (2.4-3.5) L 10/15/17 05:17 Consult Discharge Plan - Plan Referrals: Zuhair South MD [Primary Care Provider] -
[2017-10-16] MEDS: *HR* OxyCODONE/APAP 5/325 TABLET PO PRN (02:40)
[2017-10-16 04:21] LABS: Basophils % 0.5 %; Eosinophils # 0.4 K/mcL (0.0-0.6); Eosinophils % 5.7 %; Hematocrit 37.8 % (35.3-44.9); Hemoglobin 12.8 g/dL (11.5-15.4); Immature Granulocytes % 0.3 % (0-4); Lymphocytes # 2.1 K/mcL (0.6-4.6); Lymphocytes % 27.6 %; Mean Corpuscular HGB Conc 33.9 g/dL (31.6-35.5); Mean Corpuscular Hemoglobin 29.4 pg (28.0-33.3); Mean Corpuscular Volume 86.9 fL (83.0-100.0); Mean Platelet Volume 10.9 fL (9.4-12.4); Monocytes # 0.5 K/mcL (0.0-1.3); Neutrophils # 4.6 K/mcL (1.6-8.9); Platelet Count 247 K/mcL (140-400); Red Blood Count 4.35 M/mcL (3.82-4.97); Red Cell Distribution Width 12.3 % (11.5-14.5); Segmented Neutrophils % 59.9 %
[2017-10-16 04:40] LABS: BUN/Creatinine Ratio 17 (6-26); Blood Urea Nitrogen 12 mg/dL (6-20); Calcium 9.4 mg/dL (8.6-10.3); Carbon Dioxide 23 mEq/L (23-29); Chloride 109 mEq/L (98-107); Glucose 105 mg/dL (70-105); Osmolality,Calculated 286 (280-300); Potassium 4.6 mEq/L (3.5-5.1); Sodium 138 mEq/L (136-145); eGFR For African Americans > 60 (> 60); eGFR For Non-African Americans > 60 (> 60)
--- NOTE | 2017-10-16 08:54 | Neurology Progress Note ---
Date of Encounter: 10/16/17 Time of Encounter: 08:50 Assessment and Plan (1) Facial droop Current Visit: Yes Status: Acute It seems that we are dealing with a simple lower motor neuron left peripheral facial palsy. MRI shows no evidence of stroke or other structural lesion to account for this presentation. 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 There are reports of other cranial nerves being involved in addition to cranial nerve #7. This may be a possible explanation for the left facial numbness and numbness of the left tongue. I cannot present a sound neurophysiologic etiology to explain the left upper extremity weakness and left lower extremity weakness. She has normal reflexes throughout so we are not dealing with Guillain-Charleston. I would recommend assessing other risk factors. HIV can often herald its onset as a peripheral facial palsy. I would also recommend checking a Lyme titer. Also recommend checking an YAZMIN level to rule out sarcoidosis. Otherwise I would recommend oral acyclovir for 10 day course. I would also recommend a prednisone to taper over 1 week. It would be my pleasure to follow up with her in my office after discharge. Subjective Interval history: The chart was reviewed, the patient was seen and examined. I did review the MRI scan of the brain. The MRI scan was normal. There is no evidence of a stroke or any other structural lesion present. Therefore we are certainly dealing with peripheral facial palsy. For some unknown reason she still has weakness of the left upper and left lower extremity. She mentions that she does have back problems. She does have normal reflexes throughout so we are not dealing with Guillain-Charleston syndrome. She continues to have pain in the left mastoid region. The MRI scan does reveal inflammation in the region of the left mastoid. Otherwise she feels that she is relatively unchanged. Objective - Constitutional Vitals: Temp Pulse Resp BP Pulse Ox 98.7 F 65 18 131/88 95 10/16/17 07:03 10/16/17 07:03 10/16/17 07:03 10/16/17 07:03 10/16/17 07:03 - Neurological Exam Motor examination - right side: 5/5: deltoids, biceps, triceps, sheep farmer, hip flexors, tibialis Anterior, quadriceps, toe extension (EHL), plantarflexion Motor examination - left side: 4/5: deltoids, biceps, triceps, hip flexors, sheep farmer , quadriceps, tibialis Anterior, toe extension (EHL), plantarflexion Sensation intact: Present: other (Left hemihypoesthesia, including the left face.) Reflexes: Biceps: 2+ (Symmetrically), Triceps: 2+ (Symmetrically), Brachioradialis: 2+ (Symmetrically), Patella: 2+ (Symmetrically), Achilles: 2+ ( Symmetrically) Mental Status Examination: Present: awake, alert, oriented to person, oriented to place, oriented to time, follows commands appropriately, answers questions appropriately, no agnosia, no aphasia, no aproxia Cranial nerve examination: Present: PERRL, EOMI, visual cho intact, corneal reflexes brisk symmetrically, mastication intact, no dysarthria, hearing is intact symmetrically, soft palate elevates bilaterally upon phonation, flexes SCM and trapezius muscles symmetrically with full power, tongue protrudes midline. Absent: sensory to face intact (She still has left facial hemihypesthesia also feels that the left side of her tongue is numb.) Cranial Nerve Exam: facial hypesthesia: Left, facial droop: Left, flattening of masolabic/folds: Left Cerebellar examination: Present: no dysmetria, performs finger to nose and heel to bentley symmetrically without ataxia, no gait ataxia, no truncal ataxia, no difficulty with rapid alternating movements Results - Laboratory Findings CBC and BMP: 10/16/17 04:06 10/16/17 04:06 Abnormal lab findings: Abnormal lab results Chloride 109 mEq/L (98-107) H 10/16/17 04:06 Total Bilirubin 0.2 mg/dL (0.3-1.0) L 10/15/17 05:17 AST 12 Units/L (13-39) L 10/15/17 05:17 Serum Total Protein 5.8 g/dL (6.4-8.9) L 10/15/17 05:17 Globulin 2.1 g/dL (2.4-3.5) L 10/15/17 05:17 Consult Discharge Plan - Plan Referrals: Zuhair South MD [Primary Care Provider] -
[2017-10-16] MEDS: Lisinopril-HCTZ 20-12.5mg TABLET PO SCH (09:16)
[2017-10-16] MEDS: Aspirin 81 MG TAB.CHEW PO SCH (09:16)
[2017-10-16] MEDS: Artificial Tears SOLN 15 ML BOTTLE LEFT EYE SCH (09:17)
[2017-10-16] MEDS ORDERED: Ibuprofen 400 MG TABLET PO PRN (10:33)
--- NOTE | 2017-10-16 10:59 | Discharge Summary ---
- NOTES TO OUTPATIENT PROVIDER Notes to Outpatient Provider: follow up with neurology within a week Orders not resulted at time of discharge: Pending orders 10/16/17 10:41 HIV-1/2 Ab Screen ([facility] Only) [SER] Routine Lyme Disease Total Antibody Routine 10/16/17 10:42 Angiotensin Converting Enzyme Routine 10/17/17 04:00 Basic Metabolic Panel AM 0400 CBC [Complete Blood Count] [HEME] AM 04010/18/17 04:00 Basic Metabolic Panel AM 0400 CBC [Complete Blood Count] [HEME] AM 0400 10/19/17 04:00 Basic Metabolic Panel AM 0400 CBC [Complete Blood Count] [HEME] AM 04010/20/17 04:00 Basic Metabolic Panel AM 0400 CBC [Complete Blood Count] [HEME] AM 0400 10/21/17 04:00 Basic Metabolic Panel AM 0400 CBC [Complete Blood Count] [HEME] AM 0400 Date of Encounter: 10/16/17 Time of Encounter: 11:00 - Discharge Diagnosis (1) Neurosensory deficit Priority: Primary Status: Acute Assessment and Plan: 41/female Admitted with right-sided CVA/left-sided weakness r/o TIA. CT head: Negative CTA head/CTA neck: Negative for any severe occlusive disease. MRI head came back WNL. She was seen by neurology who think the etiology of her left facial droop may be cviral from possible lau's palsy. Neuro recommends 10 day course of acyclovir and a prednisone taper. Also requested lyme disease antibody , HIV test and YAZMIN levels. Patient was discharged in a stable condition (2) Hypertension Priority: Secondary Status: Acute Assessment and Plan: Monitor BP. Resume home meds Qualifiers: Hypertension type: essential hypertension Qualified Code(s): I10 - Essential (primary) hypertension (3) Dyslipidemia Priority: Secondary Status: Acute Assessment and Plan: F/U lipid panel. Continue lipitor. (4) DVT prophylaxis Priority: Secondary Status: Acute Assessment and Plan: SCD Medical decision making: This patient has a moderate to severe risk of worsening in spite of being on appropriate medication due to the underlying comorbid conditions. Hospital course: Ms. Parra is a 41 year old female - Time Spent with Patient Total time spent providing and/or coordinating discharge services: - Discharge Medications Prescriptions: Ibuprofen [Motrin] 400 mg PO Q8HR PRN #20 tablet PRN Reason: Fever/Pain Acyclovir [Zovirax] 400 mg PO TID 10 Days #30 tablet Artificial Tears SOLN [Akwa Tears] 1 drop LEFT EYE QID #30 bottle predniSONE [Prednisone] 5 mg PO TAPER 7 Days #7 tab Home Medications: Cyclobenzaprine [Flexeril] 10 mg PO BID PRN 10/14/17 [History] Lisinopril/Hydrochlorothiazide [Zestoretic 20-12.5 mg Tablet] 1 tab PO DAILY 05/22 [History] Nortriptyline HCl 50 mg PO HS 10/14/17 [History] OxyCODONE/APAP 5/325 [Percocet 5/325 MG] 1 tab PO Q8HR PRN 10/14/17 [History] Acyclovir [Zovirax] 400 mg PO TID 10 Days #30 tablet 10/16/17 [Rx] Artificial Tears SOLN [Akwa Tears] 1 drop LEFT EYE QID #30 bottle 10/16/17 [Rx] Ibuprofen [Motrin] 400 mg PO Q8HR PRN #20 tablet 10/16/17 [Rx] predniSONE [Prednisone] 5 mg PO TAPER 7 Days #7 tab 10/16/17 [Rx] Allergies/Adverse Reactions: 3 Allergy/AdvReac Type Severity Reaction Status Date / Time codeine AdvReac See Verified 10/14/17 17:23 Comments sumatriptan [From Imitrex] AdvReac Vomiting Verified 10/14/17 17:23 Date of admission: 10/14/17 20:29 Primary care physician: Zuhair South MD - Constitutional Vitals: Temp Pulse Resp BP Pulse Ox 98.7 F 65 18 131/88 95 10/16/17 07:03 10/16/17 07:03 10/16/17 07:03 10/16/17 07:03 10/16/17 09:23 General appearance: Present: A&O X 3, pleasant, no acute distress, answers questions appropriately Exam: slight left facial droop - Head Head exam: Present: atraumatic, normocephalic - Eye Eye exam: Present: PERRL, conjuntiva pink, sclera anicteric Pupils: Present: PERRL - Neck Neck exam general surgery: Present: supple, trachea midline. Absent: lymphadenopathy - Respiratory Respiratory exam: Present: CTAB. Absent: accessory muscle use, rales, rhonchi, wheezes - Cardiovascular Cardiovascular exam: Present: RRR, +S1, +S2. Absent: diastolic murmur, gallop, rubs, systolic murmur - GI/Abdominal GI/Abdominal exam: Present: normal bowel sounds, soft, no peritoneal signs. Absent: distended, tenderness - Extremities Exam Extremities exam: Present: warm, radial pulses palpable and symmetrical. Absent : calf tenderness, cyanotic, pedal edema - Neurological Exam Neurological exam: Present: CN II-XII intact, oriented X3, no focal deficits. Absent: pronater drift, facial droop, speech deficit - Skin Skin exam: Present: dry, intact - Patient Status Disposition: Home, Self-Care - Discharge Instructions Follow Up With: Zuhair South MD [Primary Care Provider] - 10/20/17 11:30 am - VTE Documentation of Mechanical Device: Intermittent pneumatic compression device
[2017-10-16 11:55] VITALS: BP 130/84
--- NOTE | 2017-10-16 13:14 | Electrocardiograph Report ---
[address] [address] Test Date: 2017-10-14 Pat Name: Odette Parra Department: 103 Room: 3B54 Gender: F [employer]: : 1975 Requested By: Travis Holguin Order Number: [id number] Reading MD: Daniel Pritchett Measurements Intervals [place] Rate: 83 P: 33 [place]: 157 QRS: -22 QRSD: 96 T: 42 QT: 355 QTc: 395 Interpretive Statements SINUS RHYTHM LOW QRS VOLTAGE IN PRECORDIAL LEADS MODERATE VOLTAGE CRITERIA FOR LVH, CONSIDER NORMAL VARIANT Poor R wave progression Electronically Signed On 10-16-2017 10:02:28 EDT by Daniel Pritchett
[2017-10-18 07:29] LABS: Homocysteine 10 umol/L (<=10)
[2017-10-19 07:34] LABS: ANA IgG by ELISA NONE DETECTED (None Detected)
[2017-10-21 11:03] LABS: Antiphospholipid IgG High Spec 0 GPL (0-14); Antiphospholipid IgM High Spec 17 MPL (0-14)
== END 2017-10-16 13:20 | disposition home or self-care (01) | DRG 48 ==
LOC: EMEROO 15:25 → 3BNU 15:25
PROVIDERS: ADMIT Internal Medicine; ATTEND Nurse Practitioner Family